=== PATIENT | male | born 1985 | race Caucasian/White ===

== ENCOUNTER 2017-05-21 09:32 | Emergency (ER) | payer OTHER ==
[~2017-05-21] VITALS: Ht 180.3 cm; Wt 105.4 kg
[2017-05-21 09:34] VITALS: TEMP 37.6; Ht 180.3 cm; Wt 105.4 kg
[2017-05-21] MEDS ORDERED: ONDANSETRON 4MG OD TAB SL ONE (10:15)
[2017-05-21] MEDS ORDERED: FLUO10CA48 PO (10:40)
[2017-05-21] MEDS ORDERED: PANT40TA PO (10:40)
[2017-05-21] MEDS ORDERED: FAMO20TA11 PO (10:40)
[2017-05-21] MEDS ORDERED: BUPR1SUB23 (10:40)
--- NOTE | 2017-05-21 10:43 | DIAGNOSTIC IMAGING REPORT ---
CHEST ONE VIEW PORTABLE CLINICAL HISTORY: CHEST PAIN dyspnea COMPARISON STUDY: No previous studies for comparison. FINDINGS: The bones soft tissues and hemidiaphragms are normal. The cardiomediastinal silhouette is normal. The lungs are clear. The pulmonary vasculature is normal. IMPRESSION: Negative chest. The above report was generated using voice recognition software. It may contain grammatical, syntax or spelling errors. Electronically signed by: Bryon Colon M.D. 05/21/2017 10:42 AM Dictated Date/Time: 05/21/2017 10:41 AM
--- NOTE | 2017-05-21 11:07 | DIAGNOSTIC IMAGING REPORT ---
CT SCAN OF THE ABDOMEN AND PELVIS WITHOUT CONTRAST CLINICAL HISTORY: Generalized abdominal pain, hematemesis. History of gastric ulcer. COMPARISON STUDY: No previous studies for comparison. TECHNIQUE: CT scan of the abdomen and pelvis was performed from the lung bases to the proximal femurs. Images are reviewed in the axial, sagittal, and coronal planes. IV contrast was not administered for this examination. A dose lowering technique was utilized adhering to the principles of ALARA. CT DOSE: 776.18 mGy.cm FINDINGS: Lower chest: The heart is normal in size and configuration, without pericardial effusion. The lung bases and pleural spaces are clear. Liver: The unenhanced liver is normal in size, contour, and attenuation. There is no intrahepatic biliary ductal dilatation. Gallbladder: Unremarkable. Spleen: Normal in size and attenuation. Pancreas: Unremarkable. Adrenal glands: Unremarkable. Kidneys: No renal, ureteral, or bladder calculi are visualized. Bowel: There are no transition zones indicate bowel obstruction. There is no evidence of acute diverticulitis. There is a moderate amount of stool present within the colon. The appendix appears normal. There is no significant colonic wall thickening. Peritoneum: There is no intraperitoneal free air or abdominal ascites. Vasculature: The abdominal aorta is normal in course and caliber. Adenopathy: None. Pelvic viscera: The bladder, and pelvic viscera are unremarkable. Skeletal structures: There is a left L5 pars defect IMPRESSION: 1. No evidence of bowel obstruction. No evidence of free air 2. No renal, ureteral, or bladder calculi identified 3. Normal appendix. 4. Mild fecal retention Electronically signed by: Daniel Santillan M.D. 05/21/2017 11:06 AM Dictated Date/Time: 05/21/2017 11:02 AM
[2017-05-21] MEDS ORDERED: LIDOCAINE HCL 2% VISC SOLN 20 ML UDC MT STA (12:00)
[2017-05-21] MEDS ORDERED: ALUMINUM/MAGNESIUM SUSP 30 ML UDC PO STA (12:00)
[2017-05-21] MEDS ORDERED: ONDA4TAB10 SL (12:02)
[2017-05-21 12:18] VITALS: BP 147/68; PULSE 109; O2SAT 93
--- NOTE | 2017-05-21 12:26 | EMERGENCY ROOM VISIT NOTE ---
History Report prepared by Gage: Ha Suresh Under the Supervision of: Dr. Tavares Martinez M.D. First contact with patient: 10:01 Chief Complaint: ABDOMINAL PAIN Stated Complaint: EXTREME STOMACH PAIN,VOMITING BLOOD,SOB Nursing Triage Summary: pt presents to ed with c/o abd pain. pt states was recently dx with a stomach ulcer. History of Present Illness The patient is a 32 year old male who presents to the Emergency Room with complaints of intermittent upper abdominal pain beginning last week. He was seen in the [facility] ED last week and was diagnosed with a stomach ulcer by ultrasound. He states that his current pain began this morning. The patient states that he woke up and noticed blood on his bed (he believes he was drooling ). He also complains of nausea, cough, and SOB. He denies any black or bloody stool, fevers, urinary symptoms, or vomiting. The patient was recently diagnosed with Hepatitis C as well. He is a smoker. 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 Nothing improves the patient's symptoms. When he was in [facility] they diagnosed him with peptic ulcer disease and placed on a proton pump inhibitor as well as an H2 mian. Apparently his liver functions were also elevated and they have referred him for specialist Source of History: patient, spouse/significant other Onset: Last week Position: abdomen (upper) Timing: intermittent Modifying Factors (Relieving): other (none) Associated Symptoms: No fevers, No melena, No hematochezia, No urinary symptoms Review of Systems See HPI for pertinent positives & negatives. A total of 10 systems reviewed and were otherwise negative. Past Medical & Surgical Medical Problems: (1) Hepatitis C Old medical records were attempted to be reviewed but there are no old records at this hospital. Nurse's notes were reviewed and I agree with. I have reviewed the records is sent from [facility] which basically said that he has peptic ulcer disease and elevated liver functions. They do not actually send the lab values however. He also said that he was recently diagnosed with hepatitis C. Family History No pertinent family history stated. Social History Smoking Status: Current Every Day Smoker Drug Use: other (former heroin and cocaine) Current/Historical Medications Scheduled Famotidine (Pepcid), 20 MG PO Q12 Fluoxetine (Prozac), 10 MG PO DAILY Ondasetron Odt (Zofran Odt), 4 MG SL Q6H Pantoprazole (Protonix), 40 MG PO DAILY Miscellaneous Medications Buprenorphine Hcl-Naloxone Hcl (Suboxone 8-2 Mg) Physical Exam Vital Signs Date Time Temp Pulse Resp B/P (MAP) Pulse Ox O2 Delivery O2 Flow Rate FiO2 05/21/17 12:18 109 147/68 93 05/21/17 11:15 98 118/55 93 05/21/17 09:34 37.6 105 18 131/58 96 Room Air Physical Exam General: Mildly-ill but non-toxic appearing young male in no acute distress. HEENT: Normal cephalic atraumatic. Pupils are equal round and reactive to light. Extraocular movements are intact. Oropharynx is pink with moist mucous membranes. No swelling of the mouth lips or tongue. Neck: Supple with a midline trachea. No meningeal signs or stiffness, no JVD or bruits. No Stridor. Chest: Clear to auscultation bilaterally. No wheezes or rhonchi. No increased work of breathing. Heart: regular rate and rhythm. Abdomen: Soft, nondistended without rebound guarding or rigidity. Mildly tender in the central upper abdomen. Extremities: No cyanosis clubbing or edema. No calf tenderness or assymetry Spine/Back. Non tender to palpation. No CVA tenderness Skin: Good turgor without rashes. Neurologic exam: Cranial nerves two through 12 are intact. Motor and sensation are intact and symmetrical throughout. Medical Decision & Procedures ER Provider Diagnostic Interpretation: Radiology results as stated below per my review and radiologist interpretation: CHEST ONE VIEW PORTABLE FINDINGS: The bones soft tissues and hemidiaphragms are normal. The cardiomediastinal silhouette is normal. The lungs are clear. The pulmonary vasculature is normal. IMPRESSION: Negative chest. The above report was generated using voice recognition software. It may contain grammatical, syntax or spelling errors. Electronically signed by: Bryon Colon M.D. 05/21/2017 10:[address] SCAN OF THE ABDOMEN AND PELVIS WITHOUT CONTRAST FINDINGS: Lower chest: The heart is normal in size and configuration, without pericardial effusion. The lung bases and pleural spaces are clear. Liver: The unenhanced liver is normal in size, contour, and attenuation. There is no intrahepatic biliary ductal dilatation. Gallbladder: Unremarkable. Spleen: Normal in size and attenuation. Pancreas: Unremarkable. Adrenal glands: Unremarkable. Kidneys: No renal, ureteral, or bladder calculi are visualized. Bowel: There are no transition zones indicate bowel obstruction. There is no evidence of acute diverticulitis. There is a moderate amount of stool present within the colon. The appendix appears normal. There is no significant colonic wall thickening. Peritoneum: There is no intraperitoneal free air or abdominal ascites. Vasculature: The abdominal aorta is normal in course and caliber. Adenopathy: None. Pelvic viscera: The bladder, and pelvic viscera are unremarkable. Skeletal structures: There is a left L5 pars defect IMPRESSION: 1. No evidence of bowel obstruction. No evidence of free air 2. No renal, ureteral, or bladder calculi identified 3. Normal appendix. 4. Mild fecal retention Electronically signed by: Daniel Santillan M.D. 05/21/2017 11:06 AM Medications Administered Medications (Trade) Dose Ordered Sig/Vane Route Start Time Stop Time Status Last Admin Dose Admin Ondansetron HCl (Zofran Odt) 4 mg ONE ONCE SL 05/21/17 10:15 05/21/17 10:17 DC 05/21/17 11:14 4 MG Al Hydroxide/Mg Hydroxide (Maalox Susp) 30 ml NOW STAT PO 05/21/17 12:00 05/21/17 12:01 DC 05/21/17 12:14 30 ML Lidocaine HCl (Viscous Lidocaine 2% Soln) 10 ml NOW STAT MT 05/21/17 12:00 05/21/17 12:01 DC 05/21/17 12:15 10 ML ED Course 1004: Past medical records reviewed. The patient was evaluated in room A9B, and a complete history and physical examination were performed. He would not like blood work or IV contrast. 1015: Ordered Zofran Odt 4 mg SL. 1056: I checked in on the patient. He is at CT. 1149: Upon reevaluation, the patient is resting comfortably. He feels better and would like to go home. I discussed the results and treatment plan with the patient. He verbalized agreement of the treatment plan. He would not like any further blood work, Toradol or work up. The patient was discharged home. 1200: Ordered GI Cocktail 30 mL PO. Medical Decision Differentials include, but are not limited to; peptic ulcer disease, gallbladder disease, pneumonia, appendicitis and electrolyte or metabolic abnormality. This patient comes in as described above he has been having abdominal pain for over a week he was seen at [facility] got worse today. On exam, he does appear to be uncomfortable and he is tender in epigastric area was recently diagnosed with peptic ulcer disease as well as hep C he does have scheduled follow-up and has been on proton pump inhibitor and acid manager fine dining. He has no evidence to suggest peritonitis. he adamantly declines blood work and IVs. He says that he is a hard stick and he had this taken multiple times in [facility] and he does not want that today. I talked him at length on several occasions and told him that I cannot fully evaluate him without this. It would be helpful to know that his hemoglobin is not dropping and follow-up with his liver functions and lipase to make sure those are worse. Againm he adamantly declines. I did a chest x-ray as he has a little bit of a cough and that was negative I did a CAT scan without IV contrast there is no acute abdominal process nothing to suggest appendicitis free air or obstructive problems. He was given a GI cocktail. He also cannot take narcotic pain medicine because he is on Suboxone. He cannot take NSAIDs because of presumed peptic ulcer disease and with his hepatitis acetaminophen use needs to be using very limited dosages. I will have him use Maalox. I gave him some Zofran if needed for nausea. I told him he can use very limited Tylenol with a maximum of 2 regular strength pills every 8 hours. He should have a mild diet. Encouraged to follow-up with his regular doctor tomorrow or specialist and he may need to be scoped ultimately. I encouraged him to return here if he has increasing pain, worsening of symptoms, fever, any new problems or concerns. He was happy with the plan and discharged home and again referral refuses any blood workup or IV, he also refused a shot of IM Toradol here. The patient is girlfriend were happy with the plan and he was discharged to home. Medication Reconcilliation Current Medication List: was personally reviewed by me Blood Pressure Screening Patient's blood pressure: Normal blood pressure Blood pressure disposition: Did not require urgent referral Impression Primary Impression: Epigastric abdominal pain Scribe Attestation The scribe's documentation has been prepared under my direction and personally reviewed by me in its entirety. I confirm that the note above accurately reflects all work, treatment, procedures, and medical decision making performed by me. Departure Information Dispostion Home / Self-Care Prescriptions Ondasetron Odt (ZOFRAN ODT) 4 Mg Tab 4 MG SL Q6H for Nausea, #10 TAB Prov: Tavares Martinez M.D. 05/21/17 Referrals No Doctor, Assigned (PCP) Forms Call Back Authorization, HOME CARE DOCUMENTATION FORM, IMPORTANT VISIT INFORMATION Patient Instructions My [facility] Additional Instructions Rest Follow-up with your doctor tommorrow for recheck May use Maalox if needed. Contintue your current stomach medications May use limited regular strength 325 mg tyelenol/acetaminophen- 2 pills every 6 hours May use Zofran 4 mg oral dissolving tablet casandra 6 hours as needed for nausea Return if: worsening of symptoms, increasing pain, fever, any new problems or concerns
== END 2017-05-21 12:20 | disposition home or self-care (01) ==
LOC: C.EDB 09:34 → C.EDA 12:20
DX: R10.13 Epigastric pain (principal); K92.0 Hematemesis; R06.02 Shortness of breath; F17.210 Nicotine dependence, cigarettes, uncomplicated; F11.21 Opioid dependence, in remission; Z79.899 Other long term (current) drug therapy

== ENCOUNTER 2024-01-30 18:38 | Observation (INO) ==
--- OUTSIDE RECORDS SUMMARY | 2024-01-30 18:42 | External Medical Summary | Summary of Care ---
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 Role Phone Andrew Reyes MD Primary Care Provider + Reason for Referral * Precert (Within 10 days (routine)) - Pending Review Specialty Diagnoses / Procedures Referred By Ankit suazo Referred To Contact Pain Medicine Diagnoses Adjacent segment disease of lumbar spine with history of fusion procedure Chronic radicular lumbar pain Procedures INJECT DX/THER SUBSTANCE INTERLAMINAR LUMBAR/SACRAL W IMAGE GUIDE Reynaldo Arias DO [address] [place] [address] Phone: tel: fax: Referral ID Status Reason Start Date Expiration Date V isits Requested Visits Authorized [id number] Pending Review 12/15/2023 [id number] Reason for Visit * Reason Onset Date Comments Advice 12/14/2023 Encounter Details Date Type Department Care Team (Late st Contact Info) Description 12/14/2023 Telephone [facility], [facility] [address] [place] [address] Reynaldo Arias DO [address] [place] [phone] Advice Allergies No known active allergiesdocumented as of this encounter (statuses as of 12/14/2023) Medications Gabapentin 400 MG Oral Capsule (Neurontin) Take 1 Capsule by mouth in the morning and 1 Capsule at noon and 1 Capsule before bedtime. 3 Active Pantoprazole Sodium 40 MG Oral Tablet Delayed Release (Protonix) take 1 tablet by mouth once daily 30-60 MINUTES PRIOR TO EATING 3 Active Triamcinolone Acetonide 0.1 % External Cream (Aristocort)Ind ications:Stasis dermatitis of both legs Apply to both legs twice daily for up to two weeks as needed for itching 454 g 4 Active Additional Information Patient not taking.Reported on 07/27/2023 Benzoyl Peroxide Wash 5 % External Liquid (Benzoyl Peroxide) Apply to underarms and groin area in shower daily 1 Each 12 4 Active Additional Information Patient not taking.Reported on 07/27/2023 Clindamycin Phosphate 1 % External Solution Apply to underarms and groin region daily 60 mL 5 4 Active Additional Information Patient not taking.Reported on 07/27/2023 documented as of this encounter (statuses as of 12/14/2023) Active Problems No known active problems documented as of this encounter (statuses as of 12/14/2023) Social History Tobacco Use Types Packs/Day Years Used Date Smoking Tobacco: Former Cigarettes 0.5 20 0 04/2002 - 04/2022 Alcohol Use Standard Drinks/Week Comments No 0 (1 standard drink = 0.6 oz pur e alcohol) Personal Safety Answer Date Recorded Do you feel unsafe or have concerns for your saf ety? No 08/08/2022 Do you have concerns for you r family's safety? (Household - for ages 0-17 years) Not on file 08/08/2022 Utilities Answer Date Recorded Do you have trouble paying y our heating, water, or electric bill? (Adult - for ages 18 years and over) Not on file 08/13/2023 Is your family able to pay t he heat, water, or electric bill? (Household - for ages 0-17 years) Not on file 08/13/2023 Does your family have access to good internet? (Household - for ages 0-17 years) Not on file 08/13/2023 Social Connections Answer Date Recorded How often do you feel lonely or isolated from those around you? (Adult - for ages 18 years and over) Not on file 07/24/2023 Transportation Needs Answer Date Record ed READ ONLY Do you have troubl e getting a ride to medical visits or work? Never True 08/08/2022 Does your family have a hard time getting a ride to doctors visits? (Household - for ages 0-17 years) Not on file 08/08/2022 Has lack of transportation k ept you from medical appointments, meetings, work, or from getting things needed for daily living? Check all that apply. (Adult - for ages 18 years and over) Not on file 08/08/2022 Do you (or your family) have trouble finding or paying for a ride (transportation)? (Household - for ages 0-17 years) Not on file 08/08/2022 Housing Stability Answer Date Recorded Do you currently live in a s helter or have no steady place to sleep at night? (Adult - for ages 18 years and over) Not on file 08/08/2022 READ ONLY Do you think you a re at risk of becoming homeless? No 08/08/2022 Does your family worry about paying for your home or becoming homeless? (Household - for ages 0-17 years) Not on file 0 08/08/2022 Are you homeless or worried that you might be in the future? (Adult - for ages 18 years and over) Not on file Are you (or your family) sudeep eless or worried that you might be in the future? (Household - for ages 0-17 years) Not on file Food Insecurity Answer Date Recorded Do you need food for this week? No 08/08/2022 Are you able to get enough f ood for your family? (Household - for ages 0-17 years) Not on file 08/08/2022 Does your family need food t his week? (Household - for ages 0-17 years) Not on file 08/08/2022 Do you always have enough fo od for your family? (Household - for ages 0-17 years) Not on file 08/08/2022 Sex and Gender Information Value Date Recorded Sex Assigned at Not on file Legal Sex Male 6:15 AM EST Gender Identity Not on file Sexual Orientation Not on file Occupation Industry Job Start Date Job End Date unemployed Not on file Not on file Not on file documented as of this encounter Miscellaneous Notes * Telephone Encounter - Lexis Garsia LPN - 12/14/2023 3:47 PM EST Patient reports increased pain since Radiofrequency ablation of the L2 and L3 medial branch nerves,bilateral on 11/16/23. Pain in low back and b/l thighs, stops at knees. States he's having difficulty even walking. documented in this encounter Plan of Treatment Upcoming Encounters Date Type Department Care Team (Late st Contact Info) Description 12/28/2023 2:00 PM EST Scheduled Telephone [facility], [facility] [address] [place] [address] [facility] Nurse Phone Call Interventional Pain [facility] [address] [place] [address] Scheduled Orders Name Type Priority Associated Diagnoses Orde r Schedule INJECT DX/THER SUBSTANCE INTERLAMINAR LUMBAR/SACRAL W IMAGE GUIDE Procedures Routine Adjacent segment disease of lumbar spine with history of fusion procedure Chronic radicular lumbar pain Expected: 12/15/2023, Expires: 03/15/2024 Health Maintenance Due Date Last Done Comments Depression Screening 1998 Hepatitis C Screening 01/02/2004 DTap/Tdap Vaccines (1 - Tdap) 2005 Hepatitis B Vaccine (1 of 3 - 19+ 3-dose series) 2005 COVID-19 Vaccine (1 - season) 2023 Influenza Vaccine (FLU shot) (#1) 2023 04/05/2023 Diabetes Screening 08/09/2025 08/09/2022, 0 08/08/2022, 08/07/2022, Additional history exists HIV Screening Completed 07/22/2020 HPV (Gardasil) Vaccine Aged Out No lo nger eligible based on patient's age to complete this topic MENINGOCOCCAL (MENACTRA/MENVEO) Aged Out No longer eligible based on patient's age to complete this topic Pneumococcal Vaccine: Pediatrics (0 to 5 Years) and At-Risk Patients (6 to 64 Years) Aged Out No longer eligible based on patient's age to complete this topic documented as of this encounter Medical Devices Implanted Type Area Ham Clerk Device Identifier Shelf Expiration Date Model / Serial / Lot Implant Graft Bone Ifact 5.0cc - [id number] Implanted:Qty : 1 on 08/07/2022 by Jose Marley MD at OR [facility] N/A: Spine Lumbar [employer] [id number] 12/05/2024 [id number] / / [id number] Bone Matrx Vivigen Formble 5cc - [id number] - [id number] Implanted:Qty : 1 on 08/07/2022 by Jose Marley MD at OR [facility] N/A: Spine Lumbar [employer] 05/15/2023 [id number] / [id number] / [id number] Eit Cellular Titanium; Eit T/Plif, H 13mm, 8 Deg, 27/10 Implanted:Qty : 1 on 08/07/2022 by Jose Marley MD at OR [facility] N/A: Spine Lumbar 02/04/2025 [id number] / / [id number] Description:EIT Eit Cellular Titanium; Eit T/Plif, H 13mm, 8 Deg, 27/10 Implanted:Qty : 1 on 08/07/2022 by Jose Marley MD at OR [facility] N/A: Spine Lumbar 05/05/2025 [id number] / / [id number] Description:EIT Screw 7x55 Poly Si [id number] - [id number] Implanted:Qty : 2 on 08/07/2022 by Jose Marley MD at OR [facility] N/A: Spine Lumbar JNJ : [employer] [id number] / / Description:From sterile kit Screw 7x45 Poly Si [id number] - [id number] Implanted:Qty : 2 on 08/07/2022 by Jose Marley MD at OR [facility] N/A: Spine Lumbar JNJ : [employer] [id number] / / Description:From sterile kit Screw Set Sng Inner [id number] - [id number] Implanted:Qty : 4 on 08/07/2022 by Jose Marley MD at OR [facility] N/A: Spine Lumbar JNJ : [employer] [id number] / / Description:From sterile kit Pre Lordosed Maximilian W Line 40mm - [id number] Implanted:Qty : 2 on 08/07/2022 by Errol Arango DO at OR [facility] N/A: Spine Lumbar JNJ : [employer] [id number] / / Description:From sterile kit documented as of this encounter Visit Diagnoses Diagnosis Adjacent segment disease of lumbar spine with history of fusion procedure- Primary Chronic radicular lumbar pain Thoracic or lumbosacral neuritis or radiculitis, unspecified documented in this encounter Advance Directives * Full Code (Latest Code Status on File) Date Activated Date Inactivated Comments 08/07/2022 4:03 PM 08/09/2022 8:01 PM This order ref lects the patients wishes and were consensually agreed upon. Question Answer Comments Discussion of Advance Direct bianca occurred with: Not Discussed due to patient's condition * Full Code Date Activated Date Inactivated Comments 08/07/2022 11:42 AM 08/07/2022 4:03 PM This order re flects the patients wishes and were consensually agreed upon. Question Answer Comments Discussion of Advance Direct bianca occurred with: Not Discussed due to patient's condition Care Teams Plastics Sheet Finishing Press Operator Relationship Specialty [place] [id number] [address] [place] [id number] PCP - General Family Medicine 10/19/22 documented as of this encounter
--- OUTSIDE RECORDS SUMMARY | 2024-01-30 18:42 | External Medical Summary | Summary of Care ---
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 [M47.816] Procedures DESTROY LUMBAR SACRAL NERVE IMAGING SINGLE DESTROY LUMBAR SACRAL NERVE IMAGING ADD'L DESTROY LUMBAR SACRAL NERVE IMAGING SINGLE DESTROY LUMBAR SACRAL NERVE IMAGING ADD'L Reynaldo Arias DO [address] [place] [address] Or [facility] [address] [place] [address] Referral ID Status Reason Start Date Expiration Date Visits Re quested Visits Authorized [id number] Encounter Details Date Type Department Care Team (Latest Contact Info) Description 11/16/2023 1:35 PM EDT - 11/16/2023 3:39 PM EDT Hospital Encounter OR [facility], Operating Room [facility] [address] [place] [address] Reynaldo Arias DO [address] [place] [address] (work) Discharge Disposition: Home - Self Care Allergies No known active allergiesdocumented as of this encounter (statuses as of 11/17/2023) Medications Medication Sig Dispensed Refills Start Date End Date Status Gabapentin 400 MG Oral Capsule (Neurontin) Take 1 Capsule by mouth in the morning and 1 Capsule at noon and 1 Capsule before bedtime. 06/12/2022 Active Pantoprazole Sodium 40 MG Oral Tablet Delayed Release (Protonix) take 1 tablet by mouth once daily 30-60 MINUTES PRIOR TO EATING 06/26/2022 Active Triamcinolone Acetonide 0.1 % External Cream (Aristocort)Indicati ons:Stasis dermatitis of both legs Apply to both legs twice daily for up to two weeks as needed for itching 454 g 02/09/2023 Active Additional Information Patient not taking.Reported on 07/27/2023 Benzoyl Peroxide Wash 5 % External Liquid (Benzoyl Peroxide) Apply to underarms and groin area in shower daily 1 Each 12 02/09/2023 Active Additional Information Patient not taking.Reported on 07/27/2023 Clindamycin Phosphate 1 % External Solution Apply to underarms and groin region daily 60 mL 5 02/09/2023 Active Additional Information Patient not taking.Reported on 07/27/2023 documented as of this encounter (statuses as of 11/17/2023) Active Problems No known active problems documented as of this encounter (statuses as of 11/17/2023) Social History Tobacco Use Types Packs/Day Years [...] Recorded Sex Assigned at Not on file Gender Identity Not on file Sexual Orientation Not on file Job Start Date Occupation Industry Not on file Not on file Not on file documented as of this encounter Last Filed Vital Signs Vital Sign Reading Time Taken Comments Blood Pressure 127/72 11/16/2023 3:25 PM EDT Pulse 67 11/16/2023 3:25 PM EDT Temperature 36.2 C (97.2 F) 11/16/2023 2:02 PM ED T Respiratory Rate 14 11/16/2023 3:25 PM EDT Oxygen Saturation 100% 11/16/2023 3:25 PM EDT Inhaled Oxygen Concentration - - Weight - - Height - - Body Mass Index - - documented in this encounter Discharge Instructions * Discharge Instr - AVS* Reynaldo Arias, - 11/16/2023 3:28 PM EDT [facility] [address] [place] [address] Discharge Date: 11/16/[address] [facility] at [phone] during business hours. For after-hours emergencies call 911. Your attending physician at the time of your discharge was: Reynaldo Arias DO [address] [place] [address] The information below provides you with the instructions and the list of medications you need to betaking following discharge from the hospital. If you have any questions, please ask before leaving.Please carry this letter with you when you see your doctor in the clinic. Diet: Resume your normal diet If you are diabetic, follow your blood sugars closely for next 2-3 days as they are likely to be elevated. If you are having difficulty controlling your blood sugars call your family doctor or the physician that treats your diabetes. Activity: Do not engage in strenuous activity today Resume your normal activities tomorrow Do not soak in water for 24 hours. No swimming, hot tub or bath but showering is allowed. Do not use heat on the injection site for 24 hours. If uncomfortable ice may be helpful. Some injections may make your arms or legs weak for a few hours. Be extremely careful when walking or changing positions that you do not fall. Have someone assist you for the next 6 hours. If weakness or numbness becomes progressive CALL IMMEDIATELY or GO TO THE NEAREST EMERGENCY ROOM Do not restart physical therapy or chiropractic manipulation until 48 hours after your injection Call : If weakness or numbness suddenly becomes worse or become progressive If the injection site becomes red, swollen, warm to the touch, begins to bleed or drain fluid, or is excessively painful. If you have any questions Medications: Resume all the medications you were taking prior to your injection. Resume your anticoagulants tomorrow unless otherwise instructed by your family physician, water chemist or the anticoagulation clinic. Additional Instructions: None Driving: You may resume driving in 12-24 hours if no weakness is noted . Date you may return to work or school: N/A Follow Up: Please make a follow-up telephone appointment with our nursing staff in 4-6 weeks. documented in this encounter Progress Notes * Reynaldo Arias DO - 11/16/2023 3:29 PM EDT [facility] [address] [facility] [address] OUTPATIENT SURGERY DISCHARGE SUMMARY NOTE Name: Vasile Corey Location: OR [facility]/OR Date: 11/16/2023 Time: 3:29 PM Surgery Date: 11/16/2023 Procedure: DESTROY LUMBAR SACRAL NERVE IMAGING SINGLE, DESTROY LUMBAR SACRAL NERVE IMAGING ADD'L Nolaterality found for procedure #1 No laterality found for procedure #2 Surgeon: Reynaldo Arias DO Discharge Diagnosis: lumbar spondylosis After examination of this patient, I have determined he is ready for discharge to home when the patient meets criteria. Discharge instructions were given to the patient. Reynaldo Arias DO OR [facility], Operating Room [facility] [address] [facility] [address] documented in this encounter H&P Notes * Reynaldo Arias, DO - 11/16/2023 2:22 PM EDT Interventional Pain H&P Subjective: History of Present Illness: Vasile Corey is a 38 year old year-old male with a past medical history significant for lumbar spondylosis who is presenting for bilateral L2,3 medial branch RFA to improve his pain and function.his pain is essentially unchanged since our last office visit with him . ASA 3 AW nml Review of Systems: A focused 12-pt ROS were of reviewed with the patient including difficulty with sleep, snoring, aspiration history, dysphagia, stomach pain, nausea and vomiting, severe headaches, confusion, open skin lesions or wounds, chest pain, shortness of breath, excessive thirst, somnolence, dysuria, incomplete bladder emptying, easy bruising, recent clotting problems or bleeding, depression or rushed thoughts unless noted previously. Review of patient's allergies indicates: No Known Allergies Medications, Past Medical History, Past Surgical History reviewed and documented in Epic. See detailed report if needed. Pertinent Labs/Test Results: INR Date Value 07/13/2022 1.0 08/31/2012 1.05 INR - OUTSIDE LAB (no units) Date Value 07/22/2020 1.0 No results found for: "CREATININE" Hemoglobin A1C (%) Date Value 07/13/2022 5.6 Lab Results Component Value Date/Time AMPHETAMINES - [facility] NEGATIVE 08/31/2012 08:40 AM BARBITURATES - [facility] NEGATIVE 08/31/2012 08:40 AM BENZODIAZEPINES - [facility] POSITIVE (A) 08/31/2012 08:40 AM METHADONE MEDICAL NEGATIVE 08/31/2012 08:40 AM OXYCODONE NEGATIVE 08/31/2012 08:40 AM CANNABINOIDS - [facility] NEGATIVE 08/31/2012 08:40 AM Imaging: I personally reviewed the imaging and my findings were . FLUORO INTERVENTIONAL PAIN PROCEDURE NONBILLABLE This procedure will not be read by a Radiologist. Please see operative note. Objective Physical Exam: Vital Signs: Pulse 76 | Temp 36.2 C (97.2 F) (Tympanic) | Resp 14 | SpO2 98% There is no heightor weight on file to calculate BMI. General: No apparent distress. Eyes: pupils equal and round, sclera white, pupils midsize. ENT: mucous membranes moist Resp: Non-labored breathing CV: Extremities warm and well-perfused. Psych: Oriented; affect warm, insight good. Skin: No rashes or lesions appreciated on exposed skin Neuromuscular Exam: TTP lumbar spine Assessment: Vasile is a 38 year old year-old male with: Lumbosacral spondylosis Plan: The patient is undergoing bilateral L2 and L3 medial branch RFA today to alleviate his pain and improve his function. The risks, benefits and alternatives to the procedure were reviewed at length andthe patient was provided the opportunity to ask questions which were answered to their voiced understanding. Following this comprehensive discussion, the patient opted to proceed. The patient was consented to the procedure following this comprehensive conversation. Reynaldo Arias DO OR [facility], Operating Room [address] [address] documented in this encounter Nursing Notes * Ligia El RN - 11/16/2023 3:26 PM EDT Visited by Dr Arias. Verbalized understanding of discharge directions. Ready for discharge to home. * Indu Parks RN - 11/16/2023 3:19 PM EDT Band aid applied to area. Patient transferred to PACU 11 via wheelchair * Indu Parks RN - 11/16/2023 3:07 PM EDT Patient tolerating pain management injection well. * Indu Parks RN - 11/16/2023 3:01 PM EDT Ablation started. Patient tolerating pain procedure injection well. * Indu Parks RN - 11/16/2023 2:59 PM EDT Patient tolerating pain management procedure well. documented in this encounter OR Notes * OR Surgeon - Reynaldo Arias DO - 11/16/2023 3:31 PM EDT LUMBAR MEDIAL BRANCH RADIOFREQUENCY ABLATION DATE: 11/16/2023 PHYSICIAN: Reynaldo Arias DO PREOPERATIVE DIAGNOSIS: Lumbar spondylosis with lumbar facet arthropathy. POSTOPERATIVE DIAGNOSIS: Lumbar spondylosis with lumbar facet arthropathy. PROCEDURE PERFORMED: 1. Radiofrequency ablation of the L2 and L3 medial branch nerves, bilateral. 2. Fluoroscopy for precise needle placement. There was no warehouse administrative assistant, EBL or drains placed during this procedure. ANESTHESIA: Local infiltration with conscious sedation MONITORS: Automatic blood pressure cuff, pulse oximetry. INDICATIONS: Vasile Corey ([id number]) is a 38 year old year-old male with history of lumbar spondylosis and facetogenic pain. The patient had 2 positive diagnostic medial branch blocks and came today for elective medial branch radiofrequency ablation at the above noted levels. MEDICATIONS: No current facility-administered medications for this encounter. ALLERGIES: Review of patient's allergies indicates: No Known Allergies REVIEW OF SYSTEMS: Negative for fever, chills, chest pain, SOB, bleeding abnormalities, nausea, vomiting, diarrhea, worsening edema, or new rashes. FOCUSED PHYSICAL EXAMINATION: The patient is awake, alert and oriented, and is in no acute distress. Vital signs are stable. The patient is afebrile. The rest of the physical examination is essentially unchanged from the patient's recent visit to our office. I explained the procedure to the patient including the risks, benefits and alternatives to the procedure. The risks discussed with the patient included but were not limited to: bleeding, infection, and damage to surrounding nerves, tissues, and organs, paralysis, increased pain, allergic reaction, blood pressure instability, seizures, heart block, headaches, . Alternatives to the procedure were also explained and include: do nothing, surgery, medications, and physical therapy. The patient verbalized understanding and was willing to proceed. PROCEDURE IN DETAIL: An informed consent was obtained. The patient was taken to the procedure room and was positively identified by the staff and the attending physician. The patient was positioned prone on the procedure bed. Vital signs were monitored as above and remained stable throughout the procedure. Conscious sedation was utilized for the procedure. The skin was prepped and draped in the standard sterile fashion. A surgical pause (time-out) was performed and was agreed upon by the members of the team. A fluoroscopic view of the lumbar spine was obtained, and the area of interest was identified. The skin was anesthetized using 1% lidocaine and 25-gauge 1-1/2-inch needle. After that, an 18-gauge 10-cm radiofrequency cannula with 10-mm active tip was advanced onto the junction between the superior articular process and the transverse process of L4 on the right side while in the declined and oblique view. Full contact with the bone was established. Additional RF cannulae were placed between the superior articular process and the transverse process of L5 on the rightside. This was to target the L2 and L3 medial branches innervating the L3/4 and L4/5 facet joints. Proper needle placement was verified and optimized in AP and lateral views. Sensory stimulation at 50Hz was utilized to established sensory thresholds, SST goal <0.5V. The nerve root motor fiber rec ruitment was ruled out by stimulation at 2 Hz in the range between 1.5 to 2.5 V. Only localized twitching of the multifidus muscle was elicited. Prior to lesioning, each nerve was anesthetized with 1 mL of 2% lidocaine. Each nerve was the simultaneously lesioned at 85 degrees centigrade, 150 seconds in duration. During removal of each cannula, the tract was anesthetized with 0.25% bupivacaine. The procedure was repeated in the same fashion on the contralateral side. Bandages were then placed over each of the puncture sites as needed. The patient tolerated the procedure well. The patient was transferred in stable condition to the recovery room. COMPLICATIONS: None. DISPOSITION: 1. Return to clinic in 1-2 months for follow-up evaluation, sooner as needed. 2. Resume activity as tolerated. 3. Patient can drive after 12-24 hours if no weakness noted. Reynaldo Arias DO OR [facility] [address] documented in this encounter Plan of Treatment Upcoming Encounters Date Type Department Care Team (Late st Contact Info) Description 12/28/2023 2:00 PM EST Scheduled Telephone Interventional Pain Center, [facility] [address] [place] [address] [place], Nurse Phone Call Interventional Pain [facility] [address] [place] [address] Health Maintenance Due Date Last Done Comments [...] this encounter Medical Devices Implanted Type Area Tile And Mottle Supervisor Device Identifier Shelf Expiration Date Model / Serial / Lot Implant Graft Bone Ifact 5.0cc - [id number] Implanted:Qty : 1 on 08/07/2022 by Jose Marley MD [place] [facility] [place] Spine Lumbar [employer] [id number] 12/05/2024 700-500 / / [id number] Bone Matrx Vivigen Formble 5cc - [id number] - [id number] Implanted:Qty : 1 on 08/07/2022 by Jose Marley MD [place] [facility] [place]: Spine Lumbar LIF[employer]ET 05/15/2023 BL-1600-002 / [id number] / [id number] Eit Cellular Titanium; Eit T/Plif, H 13mm, 8 Deg, 27/10 Implanted:Qty : 1 on 08/07/2022 by Jose Marley MD [place] [facility] [place]: Spine Lumbar 02/04/2025 [id number] / / [id number] Description:EIT Eit Cellular Titanium; Eit T/Plif, H 13mm, 8 Deg, 27/10 Implanted:Qty : 1 on 08/07/2022 by Jose Marley MD at [place] [facility] [place] [place]: Spine Lumbar 05/05/2025 [id number] / / [id number] Description:EIT Screw 7x55 Poly Si [id number] - [id number] Implanted:Qty : 2 on 08/07/2022 by Jose Marley MD at [place] [facility] [place] [place]: Spine Lumbar JNJ : [employer] [id number] / / Description:From sterile kit Screw 7x45 Poly Si [id number] - [id number] Implanted:Qty : 2 on 08/07/2022 by Jose Marley MD at [place] [facility] [place]: Spine Lumbar JNJ : [employer] [id number] / / Description:From sterile kit Screw Set Sng Inner [id number] - [id number] Implanted:Qty : 4 on 08/07/2022 by Jose Marley MD at [place] [facility] [place]: Spine Lumbar JNJ : [employer] [id number] / / Description:From sterile kit Pre Lordosed Maximilian W Line 40mm - [id number] Implanted:Qty : 2 on 08/07/2022 by Errol Arango DO at [place] [facility] [place]/A: Spine Lumbar JNJ : [facility] [id number] / / Description:From sterile kit documented as of this encounter Procedures Procedure Name Priority Date/Time Associated Diagnosis Comments FLUORO INTERVENTIONAL PAIN PROCEDURE NONBILLABLE Routine 11/16/2023 3:37 PM EDT documented in this encounter Results * FLUORO INTERVENTIONAL PAIN PROCEDURE NONBILLABLE (11/16/2023 3:37 PM EDT) Narrative Scheduling, Silent - 11/16/2023 3:39 PM EDT This procedure will not be read by a Radiologist. Please see operative note. Reynaldo KELLEY FLUOROSCOPY documented in this encounter Administered Medications Inactive Administered Medications - up to 3 most recent administrations Medication Order MAR Action Action Date Dose Rate Site bupivacaine (Sensorcaine) 0.25 % inj 3.75 mg 3.75 mg (1.5 mL), Injection, ONCE, On Sun11/16/23 at 1430, For 1 dose, Right Given 11/16/2023 3:04 PM EDT 5 mL lidocaine 1 % inj 15 mg 15 mg (1.5 mL), Subcutaneous, ONCE, On Sun11/16/23 at 1430, For 1 dose Given 11/16/2023 2:46 PM EDT 5 mL Other -Specify lidocaine 2 % inj 30 mg 30 mg (1.5 mL), Injection, ONCE, On Sun11/16/23 at 1430, For 1 dose Given 11/16/2023 2:59 PM EDT 5 mL documented in this encounter Active and Recently Administered Medications Times are shown in EDT. Scheduled Medication Order 11/14/2023 11/15/2023 11/16/2023 bupivacaine (Sensorcaine) 0.25 % inj 3.75 mg (COMPLETED) 3.75 mg (1.5 mL), Injection, ONCE, On Sun11/16/23 at 1430, For 1 dose, Right 1504 (Given - Provid er: Indu Parks RN - Comment: Bilateral [id number] branch RFADivided doses) lidocaine 1 % inj 15 mg (COMPLETED) 15 mg (1.5 mL), Subcutaneous, ONCE, On Sun11/16/23 at 1430, For 1 dose 1446 (Given - Provid er: Indu Parks RN - Comment: Bilateral [id number] branch RFADivided doses) lidocaine 2 % inj 30 mg (COMPLETED) 30 mg (1.5 mL), Injection, ONCE, On Sun11/16/23 at 1430, For 1 dose 1459 (Given - Provid er: Indu Parks RN - Comment: Bilateral [id number] branch RFADivided doses) documented in this encounter Advance Directives * [...] Discussed due to patient's condition Care Teams Company Laundry Worker Relationship Specialty Start Date End Date Andrew Reyes MD [address] [place] [address] PCP - General Family Medicine 10/19/22 documented as of this encounter
--- OUTSIDE RECORDS SUMMARY | 2024-01-30 18:42 | External Medical Summary | Summary of Care ---
Author Name Unknown Organization [facility] Address [address] [place] [address] Phone [phone] Care Team Providers Care Colon Therapist Name Role Phone Andrew Reyes MD Primary Care Provider + Reason for Referral * Precert (Within 10 days (routine)) - Pending Review Specialty Diagnoses / Procedures Referred By Ankit suazo Referred To Contact Pain Medicine Diagnoses Adjacent segment disease of lumbar spine with history of fusion procedure Chronic radicular lumbar pain Procedures INJECT DX/THER SUBSTANCE INTERLAMINAR LUMBAR/SACRAL W IMAGE GUIDE Reynaldo Arias DO [address] [place] [address] Phone: tel: fax: Referral ID Status Reason Start Date Expiration Date V isits Requested Visits Authorized [id number] Pending Review 12/15/[phone] Reason for Visit * Reason Onset Date Comments Advice 12/14/2023 Encounter Details Date Type Department Care Team (Late st Contact Info) Description 12/14/2023 Telephone Interventional Pain Center, [facility] [address] [place] [address] Reynaldo [...] as of this encounter Miscellaneous Notes * Addendum Note - Reynaldo Arias DO - 12/14/2023 4:05 PM ESTAddended by: REYNALDO ARIAS on: 12/14/2023 04:05 PM Modules accepted: Orders * Telephone Encounter - Reynaldo Arias DO - 12/14/2023 4:04 PM EST I personally reviewed the record when ordering the L3/4 LESI procedure. Hgb A1C was checked and appropriate. Hemoglobin AIC Results: Lab Results Component Value Date/Time HEMOGLOBIN A1C - [facility] 5.6 07/13/2022 03:28 PM There is not an allergy to dye, steroids or local anesthetics. The patient is is not on anticoagulant or antiplatelet medications. Please provide the patient with written pre-procedural instructions: No NSAIDs x 3 days. No supplements x 3 days. 7 day hold for OTC aspirin Reynaldo Arias DO Interventional Pain Center, [address] [address] * Telephone Encounter - Lexis Garsia LPN [...] PM EST Scheduled Telephone Interventional Pain Center, [facility] [address] [place] [address] [place] Nurse Phone Call Interventional Pain [facility] [address] [place] [address] Scheduled Orders Name Type Priority Associated Diagnoses [...] - 19+ 3-dose series) 2005 COVID-19 Vaccine ( season) 2023 Influenza Vaccine (FLU shot) (#1) [...] this encounter Medical Devices Implanted Type Area Die Developer Device Identifier Shelf Expiration Date Model / Serial / Lot Implant Graft Bone Ifact 5.0cc - [id number] Implanted:Qty : 1 on 08/07/2022 by Jose Marley MD [place] [facility] [place]: Spine Lumbar [employer] [id number] 12/05/2024 700-500 / / [id number] Bone Matrx Vivigen Formble [facility] - [id number] - [id number] Implanted:Qty : 1 on 08/07/2022 by Jose Marley MD [place] [facility] [place]: Spine Lumbar LIF[employer]ET 05/15/2023 BL-1600-002 / [id number] / [id number] Eit Cellular Titanium; Eit T/Plif, H 13mm, 8 Deg, 27/10 Implanted:Qty : 1 on 08/07/2022 by Jose Marley MD [place] [facility] [place]: Spine Lumbar 02/04/2025 [id number] / / [id number] Description:EIT Eit Cellular Titanium; Eit T/Plif, H 13mm, 8 Deg, 27/10 Implanted:Qty : 1 on 08/07/2022 by Jose Marley MD [place] [facility] [place]: Spine Lumbar 05/05/2025 [id number] / / [id number] Description:EIT Screw 7x55 Poly Si [id number] - [id number] Implanted:Qty : 2 on 08/07/2022 by Jose Marley MD [place] [facility] [place]: Spine Lumbar JNJ : [employer] [id number] / / Description:From sterile kit Screw 7x45 Poly Si [id number] - [id number] Implanted:Qty : 2 on 08/07/2022 by Jose Marley MD [place] [facility] [place]: Spine Lumbar JNJ : [employer] [id number] / / Description:From sterile kit Screw Set Sng Inner [id number] - [id number] Implanted:Qty : 4 on 08/07/2022 by Jose Marley MD [place] [facility] [place]: Spine Lumbar JNJ : [employer] [id number] / / Description:From sterile kit Pre Lordosed Maximilian W Line 40mm - [id number] Implanted:Qty : 2 on 08/07/2022 by Errol Arango DO at [place] [facility] [place]: Spine Lumbar JNJ : [employer] SPINE [id number] / / Description:From sterile kit documented as [...] Discussed due to patient's condition Care Teams Colon Therapist Relationship Specialty Start Date End Date Andrew Reyes MD [address] [place] [address] PCP - General Family Medicine 10/19/22 documented as of this encounter
--- OUTSIDE RECORDS SUMMARY | 2024-01-30 18:43 | External Medical Summary | Summary of Care ---
Author Name Unknown Organization [facility] Address [address] [place] [address] Phone [phone] Care Team Providers Care Vulnerability Assessment Analyst Name Role Phone Andrew Reyes MD Primary Care Provider + Reason for Visit * Reason Onset Date Comments transfer of records 10/29/2023 Encounter Details Date Type Department Care Team (Late st Contact Info) Description 10/29/2023 Telephone [facility], [facility] [address] [place] [id number] Reynaldo Arias, [address] [place] [phone] transfer of records Allergies No known active allergiesdocumented as of this encounter (statuses as of 10/29/2023) Medications Medication Sig Dispensed Refills Start Date [...] as of this encounter (statuses as of 10/29/2023) Active Problems No known active problems documented as of this encounter (statuses as of 10/29/2023) Social History Tobacco Use Types Packs/Day Years [...] encounter Miscellaneous Notes * Telephone Encounter - Re Zacarias OSA - 10/29/2023 2:39 PM EDT Pt would like records sent to [facility] for continued of care Thank you Forward to [facility] documented in this encounter Plan of Treatment Upcoming Encounters Date Type Department Care Team (Latest Contact Info) Description 11/16/2023 2:10 PM EDT Hospital Encounter [facility], Operating Room [facility] [address] [place] [address] Reynaldo Arias, DO [address] [place] [address] 11/16/2023 2:10 PM EDT - 11/16/2023 3:00 PM EDT Surgery OR [facility], Operating Room [facility] [address] [place] [phone] Reynaldo Arias, DO [address] [place] [phone] DESTROY LUMBAR SACRAL NERVE IMAGING SINGLE Scheduled Procedures Name Priority Associated Diagnoses Date/Ti me DESTROY LUMBAR SACRAL NERVE IMAGING SINGLE Spondylosis of lumbar region without myelopathy or radiculopathy 11/16/2023 2:10 PM EDT DESTROY LUMBAR SACRAL NERVE IMAGING ADD'L Spondylosis of lumbar region without myelopathy or radiculopathy 11/16/2023 2:10 PM EDT Health Maintenance Due Date Last Done Comments [...] this encounter Medical Devices Implanted Type Area Electrical Power Station Technician Device Identifier Shelf Expiration Date Model / Serial / Lot Implant Graft Bone Ifact 5.0cc - [id number] Implanted:Qty : 1 on 08/07/2022 [place] Mar[place] [facility] [place]: [facility] Lumbar [facility] [id number] 12/05/2024 700-500 / / [id number] Bone Matrx Vivigen Formble 5cc - [id number] - [id number] Implanted:Qty : 1 on 08/07/2022 by Jose Marley MD [place] [facility] [place]/A: Spine Lumbar [employer] 05/15/2023 BL-1600-002 / [id number] / [id number] Eit Cellular Titanium; Eit T/Plif, H 13mm, 8 Deg, 27/10 Implanted:Qty : 1 on 08/07/2022 by Jose Marley MD [place] [facility] [place]A: Spine Lumbar 02/04/2025 [id number] / / [id number] Description:EIT Eit Cellular Titanium; Eit T/Plif, H 13mm, 8 Deg, 27/10 Implanted:Qty : 1 on 08/07/2022 by Jose Marley MD [place] [facility] [place] [place]/A: Spine Lumbar 05/05/2025 [id number] / / [id number] Description:EIT Screw 7x55 Poly Si [id number] - [id number] Implanted:Qty : 2 on 08/07/2022 by Jose Marley MD [place] [facility] [place]A: Spine Lumbar JNJ : [employer] [id number] / / Description:From sterile kit Screw 7x45 Poly Si [id number] - [id number] Implanted:Qty : 2 on 08/07/2022 by Jose Marley MD [place] [facility] [place]A: Spine Lumbar JNJ : [employer] [id number] / / Description:From sterile kit Screw Set Sng Inner [id number] - [id number] Implanted:Qty : 4 on 08/07/2022 by Jose Marley MD [place] [facility] [place]A: Spine Lumbar JNJ : ETH[employer]ON [employer] [id number] / / Description:From sterile kit Pre Lordosed Maximilian W Line 40mm - [id number] Implanted:Qty : 2 on 08/07/2022 by Errol Arango DO [place] [facility] [place]A: Spine Lumbar JNJ : DEPUY SPINE [id number] / / Description:From sterile kit documented as of this encounter Advance Directives * Full Code [...] Discussed due to patient's condition Care Teams Vulnerability Assessment Analyst Relationship Specialty Start Date End Date Andrew Reyes MD [address] [place] [id number] PCP - General Family Medicine 10/19/22 documented as of this encounter
--- OUTSIDE RECORDS SUMMARY | 2024-01-30 18:43 | External Medical Summary | Summary of Care ---
Author Name Unknown Organization [facility] Address [address] [place] [address] Phone [phone] Care Team Providers Care Detail Supervisor Name Role Phone Andrew Reyes MD Primary Care Provider + Reason for Visit * Reason Onset Date Comments Returning Call 07/30/2023 Encounter Details Date Type Department Care Team (Late st Contact Info) Description 07/30/2023 Telephone [facility], [address] [address] Services, Scheduling [address] [place] [address] Returning Call Allergies No known active allergiesdocumented as of [...] encounter Miscellaneous Notes * Telephone Encounter - Lori Phelan OSA - 08/13/2023 12:49 PM EDT Patient calling regarding scheduling an appointment for ablation, spoke with Airam and she will getorders from Dr Arias and call patient to schedule * Telephone Encounter - Nandini Ashton OSA - 07/30/2023 11:56 AM EDT Pt calling stating that Lexis left him a message to call back. Please call him at above number Thanks documented in this encounter Plan of Treatment Upcoming Encounters Date Type Department Care Team (Latest Contact Info) Description 11/16/2023 2:10 PM EDT Hospital Encounter OR [facility], Operating Room [facility] [address] [place] [address] Reynaldo Arias, DO [address] [place] [address] 11/16/2023 2:10 PM EDT - 11/16/2023 3:00 PM EDT Surgery OR [facility], Operating Room [facility] [address] [place] [phone] Reynaldo Arias, [address] [place] [phone] DESTROY LUMBAR SACRAL NERVE IMAGING SINGLE Scheduled [...] this encounter Medical Devices Implanted Type Area Yardage Control Operator Device Identifier Shelf Expiration Date Model / Serial / Lot Implant Graft Bone Ifact 5.0cc - [id number] Implanted:Qty : 1 on 08/07/2022 by Jose Marley MD at [place] [facility] [place] N/A: Spine Lumbar [employer] [id number] 12/05/2024 700-500 / / [id number] Bone Matrx Vivigen Formble 5cc - [id number] - [id number] Implanted:Qty : 1 on 08/07/2022 by Jose Marley MD at OR [facility] [place] N/A: Spine Lumbar LIFENET 05/15/2023 BL-1600-002 / [id number] / [id number] Eit Cellular Titanium; Eit T/Plif, H 13mm, 8 Deg, 27/10 Implanted:Qty : 1 on 08/07/2022 by Jose Marley MD at OR [facility] [place] N/A: Spine Lumbar 02/04/2025 [id number] / / [id number] Description:EIT Eit Cellular Titanium; Eit T/Plif, H 13mm, 8 Deg, 27/10 Implanted:Qty : 1 on 08/07/2022 by Jose Marley MD at OR [facility] [place] N/A: Spine Lumbar 05/05/2025 [id number] / / [id number] Description:EIT Screw 7x55 Poly Si [id number] - [id number] Implanted:Qty : 2 on 08/07/2022 by Jose Marley MD at OR [facility] [place] N/A: Spine Lumbar JNJ : ETHICON CARDIOVATIONS [id number] / / Description:From sterile kit Screw 7x45 Poly Si [id number] - [id number] Implanted:Qty : 2 on 08/07/2022 by Jose Marley MD at OR [facility] [place] N/A: Spine Lumbar JNJ : ETH[employer]ON CARDIOVATIONS [id number] / / Description:From sterile kit Screw Set Sng Inner [id number] - [id number] Implanted:Qty : 4 on 08/07/2022 by Jose Marley MD at OR [facility] [place] N/A: Spine Lumbar JNJ : ETHICON CARDI[employer]ATIONS [id number] / / Description:From sterile kit Pre Lordosed Maximilian W Line 40mm - [id number] Implanted:Qty : 2 on 08/07/2022 by Errol Arango DO at OR [facility] [place] N/A: Spine Lumbar JNJ : DEPUY SPINE [id number] / / Description:From sterile kit documented as [...] Discussed due to patient's condition Care Teams Detail Supervisor Relationship Specialty Start Date End Date Andrew Reyes MD [address] [place] [id number] PCP - General Family Medicine 10/19/22 documented as of this encounter
[2024-01-30] MEDS: ALBUTEROL 0.5% NEB SOLN 2.5 MG/0.5 ML VIAL NEB STA ×2 (19:20→19:43)
--- NOTE | 2024-01-30 19:36 | Emergency Department Note ---
Impression & Plan Acute exacerbation of chronic obstructive airways disease, Influenza A ED Provider Note NAME: TERRELL WASHINGTON AGE: 39 SEX: M : 1985 ARRIVES VIA: Walk-In INFORMANT: Patient, ED PROVIDER(S): Jong Mcclelland MD CHIEF COMPLAINT: Shortness of breath HPI: This is a 39-year-old male presented for shortness of breath. Patient states he had a history of bronchitis as a child. He was seen yesterday night at an outside hospital and was diagnosed with influenza. He states he was not doing a chest x-ray and request what this time. He is concerned about pneumonia/bronchitis. Patient has smoked 1/2 pack a day. He also does chewing tobacco. No current chest pain. Does note pain with coughing/occasional aspiration. States fevers have been over 102 at home. ROS: See above HPI for pertinent positives & negatives. A total of 10 systems reviewed and were otherwise negative. PAST MEDICAL HISTORY: See Below PAST SURGICAL HISTORY: See Below FAMILY HISTORY: See Below SOCIAL HISTORY: See Below HOME MEDICATIONS: See Below ALLERGIES: See Below VITALS: See Below PHYSICAL EXAMINATION: General: resting comfortably in no acute distress Head: Normocephalic and atraumatic Eyes: Normal inspection, extraocular muscles intact Ear, nose, throat: Normal external exam Neck: Normal range of motion Respiratory: lungs clear to auscultation bilaterally Cardiovascular: Regular rate/rhythm, no murmur GI: soft, nontender, no guarding or rebound Extremities: nontender, moves all extremities Neuro: The patient awake and alert, appropriately conversive, no focal deficits, symmetric faces Skin: Warm, dry, and intact MEDICAL DECISION MAKING: This is a 39-year-old male present for shortness of breath. Patient tested positive for influenza at an outside hospital. Patient is having expiratory wheeze in the bases and slowly diminished breath sounds. Will order albuterol as patient likely has COPD exacerbation/bronchitis. -Chest Xray independently interpreted by me showing no pneumothorax, focal opacity, or pleural effusions. -Patient given albuterol with new hypoxia. He notes he does feel better but his oxygen was dropping. He is more wheezy as well. Will give second albuterol -After second dose, patient has resolved wheezing. He has been observed for 2+ hours after second treatment and is still hypoxic to 85% on room air -Patient required mission at this time. Blood work sent showing slight hyponatremia/hypokalemia. Otherwise no significant normalities. -Dr. Wayne was consulted, hospitalist Differential diagnosis: Pneumonia, upper respiratory infection, PE, ACS Diagnostics interpreted by me: ECG: None Cardiac Monitoring: An order was placed for continuous cardiac monitoring. The monitor shows a rate of 88 with sinus rhythm. 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 Depression Lumbar pain with radiation down left leg (Acute) Isthmic spondylolisthesis Lumbar back pain with radiculopathy affecting left lower extremity (Acute) Hepatitis C (Chronic) Medical History GERD (gastroesophageal reflux disease) Surgical History No pertinent past surgical history Family History Grandfather (Paternal) Diabetes Grandmother (Paternal) Diabetes Social History Smoking Status: Current every day smoker Tobacco Type: Cigarettes Hx Alcohol Use: No Hx Substance Use: No Preferred Language: South African Communication Ability: Effective Current Living Situation: Family current occupational status: employed Feels Safe at Home: Yes Allergies Allergies Allergy/AdvReac Type Severity Reaction Status Date / Time No Known Allergies Allergy Verified 10/15/22 02:30 Home Meds Home Medications Medication Instructions Recorded Confirmed buprenorphine 8 mg-naloxone 2 mg 1 tab sublingual BID 03/30/22 10/15/22 sublingual tablet gabapentin 400 mg capsule 400 mg PO TID 03/30/22 10/15/22 ibuprofen 800 mg tablet 800 mg PO TID PRN Pain 03/30/22 10/15/22 pantoprazole 40 mg tablet,delayed 40 mg PO DAILY 03/30/22 10/15/22 release fluoxetine 20 mg capsule (Prozac) 20 mg PO DAILY 09/10/23 09/10/23 Results & Data (ED) Vital Signs Vital Signs - 24 hr 01/30/24 18:42 01/30/24 18:52 01/30/24 18:52 Temperature 37 C 36.9 C Temperature Source Temporal Artery Scan Oral Pulse Rate 107 H Pulse Rate [Apical] 98 H Respiratory Rate 18 23 Respiratory Effort / Characteristics Non-Labored Non-Labored Spontaneous Respiratory Depth Normal Normal Respiratory Pattern Regular Regular Blood Pressure 131/84 Blood Pressure [Right Arm] 128/82 Blood Pressure Mean 99 Blood Pressure Mean [Right Arm] 97 Pulse Oximetry 91 92 Oxygen Delivery Method Room Air Room Air Room Air Oxygen Flow Rate Sepsis Recent Fever Within 48 Hours No Sepsis New/Unexplained Change in Mental Status N/A Sepsis Action Taken by Nursing No Action Required Oxygen Flow Rate - Titration Pulse Oximetry Post Tiitration 01/30/24 18:59 01/30/24 20:06 01/30/24 20:07 Temperature 37.4 C Temperature Source Oral Pulse Rate 93 H Pulse Rate [Apical] 110 H Respiratory Rate 18 Respiratory Effort / Characteristics Spontaneous Labored Respiratory Depth Normal Respiratory Pattern Blood Pressure Blood Pressure [Right Arm] 144/76 H Blood Pressure Mean Blood Pressure Mean [Right Arm] 98 Pulse Oximetry 85 L 90 Oxygen Delivery Method Room Air Nasal Cannula Oxygen Flow Rate 2 Sepsis Recent Fever Within 48 Hours Sepsis New/Unexplained Change in Mental Status Sepsis Action Taken by Nursing Oxygen Flow Rate - Titration 2 Pulse Oximetry Post Tiitration 90 01/30/24 20:18 01/30/24 22:00 01/30/24 22:52 Temperature Temperature Source Pulse Rate 103 H Pulse Rate [Apical] 94 H Respiratory Rate 15 Respiratory Effort / Characteristics Non-Labored Spontaneous Respiratory Depth Normal Respiratory Pattern Regular Blood Pressure Blood Pressure [Right Arm] 121/66 Blood Pressure Mean Blood Pressure Mean [Right Arm] 84 Pulse Oximetry 88 L 95 Oxygen Delivery Method Nasal Cannula Nasal Cannula Oxygen Flow Rate 2 5 Sepsis Recent Fever Within 48 Hours Sepsis New/Unexplained Change in Mental Status Sepsis Action Taken by Nursing Oxygen Flow Rate - Titration 5 Pulse Oximetry Post Tiitration 92 Laboratory Data 01/30/24 22:05 01/30/24 20:56 Lab Results 01/30/24 01/30/24 Range/Units 20:56 22:05 WBC Cancelled 4.18 L RBC Cancelled 5.00 Hgb Cancelled 14.1 Hct Cancelled 41.1 L MCV Cancelled 82.2 MCH Cancelled 28.2 MCHC Cancelled 34.3 RDW Std Deviation Cancelled 40.6 RDW Coeff of Manuel Cancelled 13.6 Plt Count Cancelled 121 L MPV Cancelled 10.3 Immature Gran % (Auto) Cancelled 0.0 Neut % (Auto) Cancelled 51.7 Lymph % (Auto) Cancelled 34.0 [place] % (Auto) Cancelled 12.4 Eos % (Auto) Cancelled 1.4 Baso % (Auto) Cancelled 0.5 Neut # (Auto) Cancelled 2.16 Lymph # (Auto) Cancelled 1.42 [place] # (Auto) Cancelled 0.52 Eos # (Auto) Cancelled 0.06 Baso # (Auto) Cancelled 0.02 Immature Gran # (Auto) Cancelled 0.00 L Absolute Nucleated RBC Cancelled Nucleated RBC % (auto) Cancelled Neutrophils % (Manual) Cancelled Band Neutrophils % Cancelled Lymphocytes % (Manual) Cancelled Prolymphocyte % Cancelled Reactive Lymphs % (Man) Cancelled Monocytes % (Manual) Cancelled Eosinophils % (Manual) Cancelled Basophils % (Manual) Cancelled Metamyelocytes % (Man) Cancelled Myelocytes % (Man) Cancelled Promyelocytes % (Man) Cancelled Blast Cells % (Manual) Cancelled Plasma Cell % (Manual) Cancelled Other Cells % Cancelled Nucleated RBC % Cancelled Neutrophils # (Manual) Cancelled Band Neutrophils # Cancelled Total Absolute Neuts Cancelled Lymphocytes # (Manual) Cancelled Prolymphocyte # Cancelled Reactive Lymphs # Cancelled Total Abs Lymphocytes Cancelled Monocytes # (Manual) Cancelled Eosinophils # (Manual) Cancelled Basophils # (Manual) Cancelled Metamyelocytes # (Man) Cancelled Myelocytes # (Manual) Cancelled Promyelocytes # (Man) Cancelled Blast Cells # (Man) Cancelled Plasma Cell # (Manual) Cancelled Other Cells # Cancelled Nucleated RBCs # (Man) Cancelled Hypersegmented Neuts Cancelled Hyposegmented Neuts Cancelled Hypogranular Neuts Cancelled Large Granular Lymphs Cancelled # Lrg Granular Lymphs Cancelled Hairy Cells Cancelled Smudge Cells Cancelled Toxic Granulation Cancelled Toxic Vacuolation Cancelled Dohle Bodies Cancelled Puma Rods Cancelled Platelet Estimate Cancelled Hypogranular Platelets Cancelled Giant Platelets Cancelled Platelet Satelliting Cancelled RBC Morphology Cancelled Polychromasia Cancelled Hypochromasia Cancelled Poikilocytosis Cancelled Basophilic Stippling Cancelled Anisocytosis Cancelled Microcytosis Cancelled Macrocytosis Cancelled Spherocytes Cancelled Pappenheimer Bodies Cancelled Sickle Cells Cancelled Target Cells Cancelled Tear Drop Cells Cancelled Ovalocytes Cancelled Stomatocytes Cancelled Hines-Bostonia Bodies Cancelled Echinocytes Cancelled Acanthocytes (Spur) Cancelled Rouleaux Cancelled RBC Agglutinates Cancelled Schistocytes Cancelled Sezary Cell Cancelled Sodium 133 L (136-145) mmol/L Potassium 3.2 L (3.5-5.1) mmol/L Chloride 98 (98-107) mmol/L Carbon Dioxide 28 (21-32) mmol/L Anion Gap 7 (3-11) BUN 13 (6-23) mg/dl Creatinine 1.08 (0.6-1.4) mg/dl Est Cr Clr Drug Dosing 114.2 ml/min eGFR 90.08 BUN/Creatinine Ratio 12.0 (10-20) Glucose 127 H (70-99(Fasting)) mg/dl Calcium 9.2 (8.6-10.3) mg/dl Magnesium 1.9 (1.7-2.4) mg/dl Procalcitonin 0.07 (0-0.5) ng/ml Blood Parasites ID Cancelled Administered Medications Acetaminophen (Acetaminophen 325 Mg Tab) 650 mg PO Q4H PRN PRN Reason: Pain or Fever Stop: 03/01/24 00:05 Last Admin: 01/31/24 00:31 Dose: 650 mg Documented By: ALDA Sodium Chloride (Nss) 1,000 mls @ 125 mls/hr IV .Q8H ON LICENSE OF [facility] Stop: 01/31/24 16:05 Last Admin: 01/31/24 00:32 Dose: 125 mls/hr Documented By: ALDA Oseltamivir Phosphate (Oseltamivir Phosphate 75 Mg Cap) 75 mg PO BID ALEXEY; Protocol Stop: 02/05/24 00:05 Last Admin: 01/31/24 00:36 Dose: 75 mg Documented By: ALDA Pantoprazole Sodium (Pantoprazole 40 Mg Tab) 40 mg PO DAILY ON LICENSE OF [facility] Stop: 03/01/24 08:59 Last Admin: 01/31/24 00:36 Dose: 40 mg Documented By: ALDA Discontinued Medications Albuterol (Albuterol 0.5% Neb Soln 2.5 Mg/0.5 Ml Vial) 2.5 mg NEB NOW STA; Protocol Stop: 01/30/24 19:15 Last Admin: 01/30/24 19:20 Dose: 2.5 mg Documented By: JOANNA Albuterol (Albuterol 0.5% Neb Soln 2.5 Mg/0.5 Ml Vial) 2.5 mg NEB NOW STA; Protocol Stop: 01/30/24 19:38 Last Admin: 01/30/24 19:43 Dose: 2.5 mg Documented By: MIGUE Potassium Chloride (Potassium Chloride Crtab 20 Meq Tabcr) 40 meq PO NOW STA Stop: 01/31/24 00:07 Last Admin: 01/31/24 00:41 Dose: 40 meq Documented By: ALDA Imaging Data Radiologist's Impression: Chest X-Ray 01/30/24 18:52 EXAM: XR chest 1V portable CLINICAL HISTORY: INFLUENZA, SOB, CHEST PAIN, COUGH X 2 DAYS, [facility] TECHNIQUE: Chest X-ray obtained in frontal AP portable Projection. COMPARISON: 05/07/2020 CR. FINDINGS: Prominent bronchovascular markings were noted particularly in both lower lung zones with possible infiltrates in the left lower zone. No definite consolidation was seen. The left hilum appears bulky and is stable in the interim. The right hilum is normally visualized. Both contours are intact. Both costophrenic and cardiophrenic recesses are clear. Cardiac size appears normal. Retrocardiac space is clear. No significant pathology was identified in the visualized skeleton. IMPRESSION: 1. Prominent bronchovascular markings were noted particularly in both lower lung zones with possible infiltrates in the left lower zone. mild interval progression is noted in comparison to the prior study. These changes might suggest acute infectious etiology. Please correlate with the clinical picture. 2. Stable appearing left bulky hilum. Electronically signed by Sanford Doyle 01-30-2024 7:52 PM Discharge Plan Visit Data Chief Complaint: Shortness of Breath/Dyspnea Stated Complaint: FLU, COUGH, SOB ED Provider: Jong Mcclelland Discharge Problem: Acute exacerbation of chronic obstructive airways disease, Influenza A Patient Disposition: Admitted As Inpatient Discharge Instructions Interventions: ED Discharge Assessment Last Done: 01/30/24 23:46
--- NOTE | 2024-01-30 19:53 | XRay Report ---
EXAM: XR chest 1V portable CLINICAL HISTORY: INFLUENZA, SOB, CHEST PAIN, COUGH X 2 DAYS, [facility] TECHNIQUE: Chest X-ray obtained in frontal AP portable Projection. COMPARISON: 05/07/2020 CR. FINDINGS: Prominent bronchovascular markings were noted particularly in both lower lung zones with possible infiltrates in the left lower zone. No definite consolidation was seen. The left hilum appears bulky and is stable in the interim. The right hilum is normally visualized. Both contours are intact. Both costophrenic and cardiophrenic recesses are clear. Cardiac size appears normal. Retrocardiac space is clear. No significant pathology was identified in the visualized skeleton. IMPRESSION: 1. Prominent bronchovascular markings were noted particularly in both lower lung zones with possible infiltrates in the left lower zone. mild interval progression is noted in comparison to the prior study. These changes might suggest acute infectious etiology. Please correlate with the clinical picture. 2. Stable appearing left bulky hilum. Electronically signed by Sanford Doyle 01-30-2024 7:52 PM
[2024-01-30 21:23] LABS: Calcium 9.2 mg/dl (8.6-10.3); Creatinine Clr Calc Pharmacy 114.2 ml/min; Potassium 3.2 mmol/L (3.5-5.1)
--- NOTE | 2024-01-30 22:58 | History & Physical Report ---
Date of Service January 30, 2024 Assessment & Plan (1) Influenza A: Plan: 39yo male with acute hypoxic respiratory failure secondary to influenza infection - Patient tested POSITIVE for Influenza A at an outside facility. Patient hypoxic on room air at 85% - now on 4L/min saturating 94%. Suspect some degree of atelectasis contributing as well - patient reports not taking deep breaths due to discomfort. -Admit to medical -Maintain isolation precautions for Influenza -Initiate treatment with Tamiflu 75mg po BID -Continue supplemental O2 to maintain saturations > 94% -Albuterol 2 puffs inhaled q 4 hours -Tylenol PRN -Zofran PRN -Mucinex BID -Incentive spirometry -Flutter valve -NSS at 125mL/hr x 2L (2) GERD (gastroesophageal reflux disease): Plan: Chronic. Stable -Continue Protonix 40mg po daily Plan Neuropathy - chronic, stable -Continue Gabapentin 400mg po TID Chronic pain with history of addiction - patient receives Suboxone 8/2mg SL BID from [employer]. Independently confirmed by PDMP F/E/N - NSS at 125mL/hr, KCl supplemented, repeat BMP in AM, Regular diet as tolerated Ppx - Lovenox Code - Full Dispo - Admit to medical History of Present Illness Chief Complaint: shortness of breath Primary Care Provider: Andrew Reyes Vasile Corey is a 39y male with history of GERD, ADD and Neuropathy presenting with flu-like symptoms. He reports 3 days o body aches, subjective fevers, cough productive for yellow sputum. He went to [facility] and tested POSITIVE for Influenza. He was given a prescription for an Albuterol inhaler but did not fill it. Patient's symptoms continued today so his brought him to the ER. Patient reports ongoing cough productive for yellow sputum as well as pain in the chest when he coughs. Some discomfort with deep breathing as well. No fever for the last 48 hours. No chest pain, palpitations, SOB, abdominal pain, nausea, vomiting, diarrhea. No additional complaints at this time. Patient did not receive a flu shot this year. In the ER patient afebrile, elevated HR at 88 - 107 bpm. Saturation 85% on room air - now on 4L NC saturating 94%. ER Course: Albuterol nebs x 2 Allergies Allergy/AdvReac Type Severity Reaction Status Date / Time No Known Allergies Allergy Verified 10/15/22 02:30 Home Medications Medication Instructions Recorded Confirmed Type buprenorphine 8 mg-naloxone 2 mg 1 tab sublingual BID 03/30/22 10/15/22 History sublingual tablet gabapentin 400 mg capsule 400 mg PO TID 03/30/22 10/15/22 History ibuprofen 800 mg tablet 800 mg PO TID PRN Pain 03/30/22 10/15/22 History pantoprazole 40 mg tablet,delayed 40 mg PO DAILY 03/30/22 10/15/22 History release fluoxetine 20 mg capsule (Prozac) 20 mg PO DAILY 10/15/22 10/15/22 History Past Med/Surg History Problem List Influenza A (Acute) Acute exacerbation of chronic obstructive airways disease (Acute) Lab test negative for COVID-19 virus (Acute) 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 Depression Lumbar pain with radiation down left leg (Acute) Isthmic spondylolisthesis Lumbar back pain with radiculopathy affecting left lower extremity (Acute) Hepatitis C (Chronic) Medical History GERD (gastroesophageal reflux disease) Surgical History No pertinent past surgical history Family History Grandfather (Paternal) Diabetes Grandmother (Paternal) Diabetes Social History Smoking Status: Current every day smoker Tobacco Type: Cigarettes Cigarettes Per Day: 1/2 ppd; Second Hand Exposure: No; Do You Dip or Chew Tobacco: Yes; Tobacco Cessation Education Requested by Patient: No Hx Alcohol Use: No Hx Substance Use: Yes Last Used Substance Other:: last used 8 years ago Preferred Language: Maori Communication Ability: Effective Sighter Required: No Beliefs That Will Affect Care: None Current Living Situation: Significant Other Current Living Situation Comment: and children current occupational status: employed Other Information That Helps Us Care for You: No Feels Safe at Home: Yes Safety Concerns: Feels Safe At This Time Assistive Devices: Cane Review of Systems Review of Systems: All systems reviewed & are unremarkable except as noted in HPI & below Physical Exam Physical Exam: General: patient resting comfortably, NAD, non-toxic in appearance, AA&O x 4 Skin: warm, dry, intact, no rashes or lesions HEENT: NC/AT, PERRL, EOMI, anicteric sclera, conjunctiva without injection, external ear normal to inspection and nontender, nares patent, moist mucus membranes, dentition intact, no oropharyngeal lesions, neck supple, trachea midline, no LAD, no thyromegaly, no JVD Heart: +S1/S2, regular, tachycardia, no m/r/g Lungs: equal air entry bilaterally, scattered rhonchi with end expiratory wheezing Abd: +BS, soft, NT/ND, no masses/organomegaly/ascites Ext: warm, 2+ pulses in UE/LE bilaterally, no clubbing/cyanosis or edema Neuro: nonfocal, patient AA&O x 4, speech intact, no facial droop, moving all extremities on command with equal strength 5/5 Results & Data Results & Data Vital Signs (Past 12 Hours) Vital Signs Temp Pulse Pulse Resp BP BP Pulse Ox 01/30/24 22:52 103 H 01/30/24 22:00 94 H 15 121/66 95 01/30/24 20:18 88 L 01/30/24 20:07 37.4 C 110 H 18 144/76 H 90 01/30/24 20:06 85 L 01/30/24 18:59 93 H 01/30/24 18:52 36.9 C 98 H 23 128/82 92 01/30/24 18:52 01/30/24 18:42 37 C 107 H 18 131/84 91 O2 Del Method O2 Flow Rate 01/30/24 22:52 01/30/24 22:00 Nasal Cannula 5 01/30/24 20:18 Nasal Cannula 2 01/30/24 20:07 Nasal Cannula 2 01/30/24 20:06 Room Air 01/30/24 18:59 01/30/24 18:52 Room Air 01/30/24 18:52 Room Air 01/30/24 18:42 Room Air Laboratory Results Laboratory Results WBC 4.18 K/ul (4.8-10.8) L 01/30/24 22:05 RBC 5.00 M/uL (4.70-6.10) 01/30/24 22:05 Hgb 14.1 g/dl (14.0-18.0) 01/30/24 22:05 Hct 41.1 % (42.0-52.0) L 01/30/24 22:05 MCV 82.2 fL (80.0-100.0) 01/30/24 22:05 MCH 28.2 pg (25.0-34.0) 01/30/24 22:05 MCHC 34.3 g/dL (32.0-36.0) 01/30/24 22:05 RDW Std Deviation 40.6 fL (36.4-46.3) 01/30/24 22:05 RDW Coeff of Manuel 13.6 % (11.5-14.5) 01/30/24 22:05 Plt Count 121 K/uL (130-400) L 01/30/24 22:05 MPV 10.3 fL (9.4-12.4) 01/30/24 22:05 Immature Gran % (Auto) 0.0 % 01/30/24 22:05 Neut % (Auto) 51.7 % 01/30/24 22:05 Lymph % (Auto) 34.0 % 01/30/24 22:05 Nolan % (Auto) 12.4 % 01/30/24 22:05 Eos % (Auto) 1.4 % 01/30/24 22:05 Baso % (Auto) 0.5 % 01/30/24 22:05 Neut # (Auto) 2.16 K/uL (1.40-6.50) 01/30/24 22:05 Lymph # (Auto) 1.42 K/uL (1.20-3.40) 01/30/24 22:05 Nolan # (Auto) 0.52 K/uL (0.11-0.59) 01/30/24 22:05 Eos # (Auto) 0.06 K/uL (0.00-0.50) 01/30/24 22:05 Baso # (Auto) 0.02 K/uL (0.00-0.20) 01/30/24 22:05 Immature Gran # (Auto) 0.00 K/uL (0.01-0.20) L 01/30/24 22:05 Absolute Nucleated RBC Cancelled 01/30/24 20:56 Nucleated RBC % (auto) Cancelled 01/30/24 20:56 Neutrophils % (Manual) Cancelled 01/30/24 20:56 Band Neutrophils % Cancelled 01/30/24 20:56 Lymphocytes % (Manual) Cancelled 01/30/24 20:56 Prolymphocyte % Cancelled 01/30/24 20:56 Reactive Lymphs % (Man) Cancelled 01/30/24 20:56 Monocytes % (Manual) Cancelled 01/30/24 20:56 Eosinophils % (Manual) Cancelled 01/30/24 20:56 Basophils % (Manual) Cancelled 01/30/24 20:56 Metamyelocytes % (Man) Cancelled 01/30/24 20:56 Myelocytes % (Man) Cancelled 01/30/24 20:56 Promyelocytes % (Man) Cancelled 01/30/24 20:56 Blast Cells % (Manual) Cancelled 01/30/24 20:56 Plasma Cell % (Manual) Cancelled 01/30/24 20:56 Other Cells % Cancelled 01/30/24 20:56 Nucleated RBC % Cancelled 01/30/24 20:56 Neutrophils # (Manual) Cancelled 01/30/24 20:56 Band Neutrophils # Cancelled 01/30/24 20:56 Total Absolute Neuts Cancelled 01/30/24 20:56 Lymphocytes # (Manual) Cancelled 01/30/24 20:56 Prolymphocyte # Cancelled 01/30/24 20:56 Reactive Lymphs # Cancelled 01/30/24 20:56 Total Abs Lymphocytes Cancelled 01/30/24 20:56 Monocytes # (Manual) Cancelled 01/30/24 20:56 Eosinophils # (Manual) Cancelled 01/30/24 20:56 Basophils # (Manual) Cancelled 01/30/24 20:56 Metamyelocytes # (Man) Cancelled 01/30/24 20:56 Myelocytes # (Manual) Cancelled 01/30/24 20:56 Promyelocytes # (Man) Cancelled 01/30/24 20:56 Blast Cells # (Man) Cancelled 01/30/24 20:56 Plasma Cell # (Manual) Cancelled 01/30/24 20:56 Other Cells # Cancelled 01/30/24 20:56 Nucleated RBCs # (Man) Cancelled 01/30/24 20:56 Hypersegmented Neuts Cancelled 01/30/24 20:56 Hyposegmented Neuts Cancelled 01/30/24 20:56 Hypogranular Neuts Cancelled 01/30/24 20:56 Large Granular Lymphs Cancelled 01/30/24 20:56 # Lrg Granular Lymphs Cancelled 01/30/24 20:56 Hairy Cells Cancelled 01/30/24 20:56 Smudge Cells Cancelled 01/30/24 20:56 Toxic Granulation Cancelled 01/30/24 20:56 Toxic Vacuolation Cancelled 01/30/24 20:56 Dohle Bodies Cancelled 01/30/24 20:56 Puma Rods Cancelled 01/30/24 20:56 Platelet Estimate Cancelled 01/30/24 20:56 Hypogranular Platelets Cancelled 01/30/24 20:56 Giant Platelets Cancelled 01/30/24 20:56 Platelet Satelliting Cancelled 01/30/24 20:56 RBC Morphology Cancelled 01/30/24 20:56 Polychromasia Cancelled 01/30/24 20:56 Hypochromasia Cancelled 01/30/24 20:56 Poikilocytosis Cancelled 01/30/24 20:56 Basophilic Stippling Cancelled 01/30/24 20:56 Anisocytosis Cancelled 01/30/24 20:56 Microcytosis Cancelled 01/30/24 20:56 Macrocytosis Cancelled 01/30/24 20:56 Spherocytes Cancelled 01/30/24 20:56 Pappenheimer Bodies Cancelled 01/30/24 20:56 Sickle Cells Cancelled 01/30/24 20:56 Target Cells Cancelled 01/30/24 20:56 Tear Drop Cells Cancelled 01/30/24 20:56 Ovalocytes Cancelled 01/30/24 20:56 Stomatocytes Cancelled 01/30/24 20:56 [place] Bodies Cancelled 01/30/24 20:56 Echinocytes Cancelled 01/30/24 20:56 Acanthocytes (Spur) Cancelled 01/30/24 20:56 Rouleaux Cancelled 01/30/24 20:56 RBC Agglutinates Cancelled 01/30/24 20:56 Schistocytes Cancelled 01/30/24 20:56 Sezary Cell Cancelled 01/30/24 20:56 Sodium 133 mmol/L (136-145) L 01/30/24 20:56 Potassium 3.2 mmol/L (3.5-5.1) L 01/30/24 20:56 Chloride 98 mmol/L (98-107) 01/30/24 20:56 Carbon Dioxide 28 mmol/L (21-32) 01/30/24 20:56 Anion Gap 7 (3-11) 01/30/24 20:56 BUN 13 mg/dl (6-23) 01/30/24 20:56 Creatinine 1.08 mg/dl (0.6-1.4) 01/30/24 20:56 Est Cr Clr Drug Dosing 114.2 ml/min 01/30/24 20:56 eGFR 90.08 01/30/24 20:56 BUN/Creatinine Ratio 12.0 (10-20) 01/30/24 20:56 Glucose 127 mg/dl (70-99(Fasting)) H 01/30/24 20:56 Calcium 9.2 mg/dl (8.6-10.3) 01/30/24 20:56 Magnesium 1.9 mg/dl (1.7-2.4) 01/30/24 20:56 Procalcitonin 0.07 ng/ml (0-0.5) 01/30/24 20:56 Blood Parasites ID Cancelled 01/30/24 20:56 Impressions Chest X-Ray 01/30/24 18:52 EXAM: XR chest 1V portable CLINICAL HISTORY: INFLUENZA, SOB, CHEST PAIN, COUGH X 2 DAYS, [facility] TECHNIQUE: Chest X-ray obtained in frontal AP portable Projection. COMPARISON: 05/07/2020 CR. FINDINGS: Prominent bronchovascular markings were noted particularly in both lower lung zones with possible infiltrates in the left lower zone. No definite consolidation was seen. The left hilum appears bulky and is stable in the interim. The right hilum is normally visualized. Both contours are intact. Both costophrenic and cardiophrenic recesses are clear. Cardiac size appears normal. Retrocardiac space is clear. No significant pathology was identified in the visualized skeleton. IMPRESSION: 1. Prominent bronchovascular markings were noted particularly in both lower lung zones with possible infiltrates in the left lower zone. mild interval progression is noted in comparison to the prior study. These changes might suggest acute infectious etiology. Please correlate with the clinical picture. 2. Stable appearing left bulky hilum. Electronically signed by Sanford Doyle 01-30-2024 7:52 PM Code Status & VTE Plan VTE Prophylaxis Plan VTE Prophylaxis will be ordered: Yes PG Care Time/CCT Total # of Minutes Spent Total Time Spent with Patient: Total time spent is greater than 50% in coordination of care (as documented) at patient's floor/unit and/or counseling patient: Coding Level of Care Code 76852 INT INP/OBS CARE 2/55MIN Diagnoses Influenza A J10.1 GERD (gastroesophageal reflux disease) K21.9
[2024-01-30 23:10] LABS: Basophils # (auto) 0.02 K/uL (0.00-0.20); Basophils % (auto) 0.5 %; Eosinophils # (auto) 0.06 K/uL (0.00-0.50); Eosinophils % (auto) 1.4 %; Hematocrit (blood only) 41.1 % (42.0-52.0); Hemoglobin 14.1 g/dl (14.0-18.0); Lymphocytes # (auto) 1.42 K/uL (1.20-3.40); Mean Corpuscular Hemoglobin 28.2 pg (25.0-34.0); Mean Corpuscular Hgb Conc 34.3 g/dL (32.0-36.0); Mean Corpuscular Volume 82.2 fL (80.0-100.0); Mean Platelet Volume 10.3 fL (9.4-12.4); Monocytes # (auto) 0.52 K/uL (0.11-0.59); Monocytes % (auto) 12.4 %; Neutrophils # (auto) 2.16 K/uL (1.40-6.50); Neutrophils % (auto) 51.7 %; Platelet Count 121 K/uL (130-400); RDW Coefficient of Variation 13.6 % (11.5-14.5); RDW Standard Deviation 40.6 fL (36.4-46.3); White Blood Count 4.18 K/ul (4.8-10.8)
[2024-01-31] MEDS ORDERED: ONDANSETRON INJ 2 MG/ML 2 ML VIAL IV PRN (00:06)
[2024-01-31 00:28] LABS: Magnesium 1.9 mg/dl (1.7-2.4)
[2024-01-31] MEDS: ACETAMINOPHEN 325 MG TAB PO PRN (00:31)
[2024-01-31] MEDS: SODIUM CHLORIDE 0.9% 1,000 ML IV SCH (00:32)
[2024-01-31] MEDS: PANTOprazole 40 MG TAB PO SCH (00:36)
[2024-01-31] MEDS: OSELTAMIVIR PHOSPHATE 75 MG CAP PO SCH (00:36)
[2024-01-31] MEDS: POTASSIUM CHLORIDE CRTAB 20 MEQ TABCR PO STA (00:41)
[2024-01-31] MEDS: ALBUTEROL HFA 8 GM INHALER INH SCH (02:02)
[2024-01-31] MEDS: KETOROLAC TROMETHAMINE 15 MG/ML VIAL IV ONE (04:59)
[2024-01-31] MEDS: ENOXAPARIN INJ 40 MG/0.4 ML SYR SQ SCH (06:45)
[2024-01-31 08:06] VITALS: BP 120/68; TEMP 98.2
[2024-01-31 08:15] LABS: Hematocrit (blood only) 39.3 % (42.0-52.0); Hemoglobin 13.5 g/dl (14.0-18.0); Mean Corpuscular Hemoglobin 28.2 pg (25.0-34.0); Mean Corpuscular Hgb Conc 34.4 g/dL (32.0-36.0); Mean Corpuscular Volume 82.2 fL (80.0-100.0); Mean Platelet Volume 10.7 fL (9.4-12.4); Platelet Count 115 K/uL (130-400); RDW Coefficient of Variation 13.5 % (11.5-14.5); RDW Standard Deviation 40.8 fL (36.4-46.3); Red Blood Count 4.78 M/uL (4.70-6.10); White Blood Count 3.98 K/ul (4.8-10.8)
[2024-01-31 08:20] LABS: BUN Creatinine Ratio 9.9 (10-20); Calcium 8.7 mg/dl (8.6-10.3); Creatinine Clr Calc Pharmacy 136.1 ml/min; Potassium 3.8 mmol/L (3.5-5.1)
[2024-01-31] MEDS: BUPRENORPHINE/NALOXONE 8/2 MG TAB SL SCH (09:06)
[2024-01-31] MEDS: guaiFENesin 600 MG TABCR PO SCH (09:07)
[2024-01-31] MEDS: GABAPENTIN 400 MG CAP PO SCH (09:07)
[2024-01-31 15:43] VITALS: PULSE 87; RESP 16; O2SAT 92
--- NOTE | 2024-01-31 16:47 | Discharge Summary ---
Discharge Summary Date of Service January 31, 2024 Principal Dx & Hospital Course #1 = Principal Diagnosis (1) Influenza A: 39yo male with acute hypoxic respiratory failure secondary to influenza infection - Patient tested POSITIVE for Influenza A at an outside facility. Patient hypoxic on room air at 85% - now on 4L/min saturating 94%. Suspect some degree of atelectasis contributing as well - patient reports not taking deep breaths due to discomfort. -Admit to medical -Maintain isolation precautions for Influenza -Initiate treatment with Tamiflu 75mg po BID -Symptoms improved quickly after IVF and initiation of tamiflu and patient was discharged. (2) GERD (gastroesophageal reflux disease): Chronic. Stable -Continue Protonix 40mg po daily Plan Neuropathy - chronic, stable -Continue Gabapentin 400mg po TID Chronic pain with history of addiction - patient receives Suboxone 8/2mg SL BID from [employer]. Independently confirmed by PDMP Admission HPI Per Admitting Provider Vasile Corey is a 39y male with history of GERD, ADD and Neuropathy presenting with flu-like symptoms. He reports 3 days o body aches, subjective fevers, cough productive for yellow sputum. He went to [facility] and tested POSITIVE for Influenza. He was given a prescription for an Albuterol inhaler but did not fill it. Patient's symptoms continued today so his brought him to the ER. Patient reports ongoing cough productive for yellow sputum as well as pain in the chest when he coughs. Some discomfort with deep breathing as well. No fever for the last 48 hours. No chest pain, palpitations, SOB, abdominal pain, nausea, vomiting, diarrhea. No additional complaints at this time. Patient did not receive a flu shot this year. In the ER patient afebrile, elevated HR at 88 - 107 bpm. Saturation 85% on room air - now on 4L NC saturating 94%. ER Course: Albuterol nebs x 2 Discharge Exam General: patient resting comfortably Skin: warm, dry, intact, no rashes or lesions HEENT: NC/AT, PERRL, EOMIlesions, neck supple, trachea midline, no LAD, no thyromegaly, no JVD Heart: +S1/S2, regular, tachycardia, no m/r/g Lungs: equal air entry bilaterally, scattered rhonchi with end expiratory wheezing Abd: +BS, soft, NT/ND, no masses/organomegaly/ascites Ext: warm, 2+ pulses in UE/LE bilaterally, no clubbing/cyanosis or edema Discharge Plan Discharge Items Patient Disposition: Home - Self-Care Reason For Visit: INFLUENZA, HYPOXIA Discharge Diagnosis: Influenza Activity: Resume your previous activity Non-emergency contact: Primary Care Provider Call non-emergency contact if: you have any medication questions Follow-up/Referrals: Andrew Reyes M.D. [Primary Care Provider] - Diet: Regular Addtl Attending Provider Instructions: Good afternoon Mr. Corey, Glad to see that you are feeling better. Please continue taking tamiflu twice a day, once in the morning and once in the evening. Your next dose will be tonight. To prevent the spread of the flu, you should: * Stay home from work or school until you've been fever-free for at least 24 hours * Cover your nose and mouth when you sneeze * Wash your hands immediately after with soap and water or use hand blue line hanger * Clean and disinfect household surfaces * Avoid touching your face, especially your eyes, nose, or mouth * Wear a mask until you reach 5 full days after onset of symptoms. * People are most contagious during the first 4 days of symptoms. Pending Studies at Discharge: No Stand-Alone Forms: My [facility], Work/School Release, Smoking Cessation Medications and DC Order Prescriptions: New oseltamivir [Tamiflu] 75 mg Capsule 75 mg PO BID Qty: 8 0RF albuterol sulfate [Ventolin HFA] 90 mcg/actuation Hfa Aerosol Inhaler 2 puff inhalation Q4R PRN (Reason: shortness of breath or wheezing) Qty: 6.7 0RF guaifenesin [Mucinex] 600 mg Tablet Extended Release 12hr 1,200 mg PO Q12 Qty: 10 0RF Continued ibuprofen 800 mg tablet 800 mg PO TID PRN (Reason: Pain) gabapentin 400 mg capsule 400 mg PO TID pantoprazole 40 mg tablet,delayed release (DR/EC) 40 mg PO DAILY buprenorphine-naloxone 8-2 mg tablet, sublingual 1 tab SUBLINGUAL BID fluoxetine [Prozac] 20 mg Capsule 20 mg PO DAILY Discharge Orders: Discharge Order (Routine); Ordered 01/31/24 Ordered By: Jayesh Valentin/Other Patient Handouts: The Flu (Influenza) Admission Data Admit Date/Time: 01/30/24 22:57 Attending Provider: Jayesh Camargo Admit Provider: Marybeth Wayne Primary Care Provider: Andrew Reyes Other Interventions: Discharge Summary Assessment (RN) Last Done: 01/31/24 18:12 Hospital Stay Data Consultations 01/30/24 22:57 ED Decision to Admit Stat Pending Results Patient Have Any Pending Studies at Discharge: No Discharge Instructions Given to Patient (Per Discharging Provider) Good afternoon Mr. Corey, Glad to see that you are feeling better. Please continue taking tamiflu twice a day, once in the morning and once in the evening. Your next dose will be tonight. To prevent the spread of the flu, you should: * Stay home from work or school until you've been fever-free for at least 24 hours * Cover your nose and mouth when you sneeze * Wash your hands immediately after with soap and water or use hand blue line hanger * Clean and disinfect household surfaces * Avoid touching your face, especially your eyes, nose, or mouth * Wear a mask until you reach 5 full days after onset of symptoms. * People are most contagious during the first 4 days of symptoms. Total Time Total Time Spent Total Time Spent (In Minutes): 32 Coding Level of Care Code 57041 INP/OBS DISCH >30 MIN Diagnoses Influenza A J10.1 GERD (gastroesophageal reflux disease) K21.9
== END 2024-01-31 18:25 | disposition home or self-care (01) | DRG 193 ==
LOC: ED 18:38 → 3N 22:57 → SUATTDRO 22:57 → INTOOBSV 22:57 → 3N 23:46